=== PATIENT | female | born 1990 | race African-American/Black ===

== ENCOUNTER 2017-01-06 17:48 | Emergency (ER) | payer BC ==
--- NOTE | 2017-01-06 18:47 | ER Document Report ---
ED GI/ - General Chief Complaint: Nausea/Vomiting Stated Complaint: NAUSEA Time Seen by Provider: 01/06/17 18:20 Notes: 26 yo female c/o nausea, light headed x 1 week. ? . LMP 12/17. Denies abdominal pain, vaginal bleeding, dysuria, fever TRAVEL OUTSIDE OF THE [place] IN LAST 30 DAYS: No - HPI Onset: Last week Timing/Duration: Gradual, Persistent Quality of pain: No pain Vaginal bleeding (Compared to normal period): None Menstrual period history: Missed LMP: 12/17/16 : 2 Para: 1 - Related Data Allergies/Adverse Reactions: No Known Allergies Allergy (Unverified 05/26/13 14:52) Past Medical History - General Information source: Patient - Social History Smoking Status: Never Smoker Chew tobacco use (# tins/day): No Frequency of alcohol use: None Drug Abuse: None Lives with: Family Family History: None Patient has suicidal ideation: No Patient has homicidal ideation: No Renal/ Medical History: Denies: Hx Peritoneal Dialysis - Immunizations Hx Diphtheria, Pertussis, Tetanus Vaccination: Yes Hx Pneumococcal Vaccination: 08/30/00 Review of Systems - Review of Systems Constitutional: Malaise, Weakness EENT: No symptoms reported Cardiovascular: No symptoms reported Respiratory: No symptoms reported Gastrointestinal: See HPI, Nausea Genitourinary: No symptoms reported Female Genitourinary: No symptoms reported Musculoskeletal: No symptoms reported Skin: No symptoms reported Hematologic/Lymphatic: No symptoms reported Neurological/Psychological: No symptoms reported Physical Exam - Vital signs Vitals: Temp Pulse Resp BP Pulse Ox 98.8 F 87 14 112/71 100 01/06/17 18:05 01/06/17 18:05 01/06/17 18:05 01/06/17 18:05 01/06/17 18:05 Interpretation: Normal - General General appearance: Appears well, Alert - HEENT Head: Normocephalic, Atraumatic Eyes: Normal Pupils: PERRL - Respiratory Respiratory status: No respiratory distress Chest status: Nontender Breath sounds: Normal Chest palpation: Normal - Cardiovascular Rhythm: Regular Heart sounds: Normal auscultation Murmur: No - Abdominal Inspection: Normal Distension: No distension Bowel sounds: Normal Tenderness: Nontender Organomegaly: No organomegaly - Back Back: Normal, Nontender - Extremities General upper extremity: Normal inspection, Nontender, Normal color, Normal ROM , Normal temperature General lower extremity: Normal inspection, Nontender, Normal color, Normal ROM , Normal temperature, Normal weight bearing. No: Marcos's sign - Neurological Neuro grossly intact: Yes Cognition: Normal Orientation: AAOx4 Cecelia Coma Scale Eye Opening: Spontaneous [place] Coma Scale Verbal: Oriented Cecelia Coma Scale Motor: Obeys Commands Cecelia Coma Scale Total: 15 Speech: Normal Motor strength normal: LUE, RUE, LLE, RLE Sensory: Normal - Psychological Associated symptoms: Normal affect, Normal mood - Skin Skin Temperature: Warm Skin Moisture: Dry Skin Color: Normal Course - Vital Signs Vital signs: Temp Pulse Resp BP Pulse Ox 98.3 F 72 20 114/59 L 100 01/06/17 20:37 01/06/17 20:37 01/06/17 20:37 01/06/17 20:37 01/06/17 20:37 - Laboratory Laboratory results interpreted by me: 01/06/17 01/06/17 19:04 19:12 Serum HCG, Qual POSITIVE H Urine Protein 30 H Urine Ketones 80 H Urine Urobilinogen 2.0 H Ur Leukocyte Esterase LARGE H Urine Ascorbic Acid 40 H Discharge - Discharge Clinical Impression: Dehydration UTI (urinary tract infection) Qualifiers: Urinary tract infection type: acute cystitis Hematuria presence: without hematuria Qualified Code(s): N30.00 - Acute cystitis without hematuria Qualifiers: Weeks of gestation: 9 weeks Qualified Code(s): Z3A.09 - 9 weeks gestation of Condition: Stable Disposition: HOME, SELF-CARE Instructions: Antibiotic Therapy ([facility]), Antinausea Medication ([facility]), Urinary Tract Infection ([facility]), ([facility]) Additional Instructions: You were treated today for a urinary tract infection and mild dehydration Take antibiotic as prescribed A urine culture is pending. Based o thsoe results, If any further treatment is needed, we will call you. Your pregancy test was positive today Based on your last menstrual period, your estimated due date is Sep 23, 2017 Take phenergan as needed for nausea. Be aware, This medicine may make you drowsy You may also take Over the counter Vitamin B6, 25mg tablet every 8h as needed for nausea Please follow up with your senior mechanical development engineer for further treatment Prescriptions: Nitrofurantoin Macrocrystal [Macrodantin] 100 mg PO QID #28 capsule Promethazine HCl [Phenergan 25 mg Tablet] 25 mg PO Q6H PRN #20 tablet PRN Reason: Forms: Return to Work
[2017-01-06 19:19] LABS: APPEARANCE,URINE CLOUDY; BILIRUBIN,URINE NEGATIVE (NEGATIVE); GLUCOSE, URINE NEGATIVE (NEGATIVE); KETONES,URINE 80 mg/dL (NEGATIVE); LEUKOCYTE ESTERASE,URINE LARGE (NEGATIVE); NITRITE,URINE NEGATIVE (NEGATIVE); PROTEIN,URINE 30 mg/dL (NEGATIVE); URINE SPECIFIC GRAVITY 1.031
[2017-01-06] MEDS ORDERED: NORMAL SALINE 1000 ML 1,000 ML IV PRN (19:35)
[2017-01-06] MEDS ORDERED: PROMETHAZINE HCL 25 MG TABLET PO ONE (19:36)
[2017-01-06] MEDS ORDERED: NITROFURANTOIN MONOHYD/M-CRYST 100 MG CAPSULE PO ONE (20:01)
[2017-01-06 20:44] VITALS: BP 114/59
== END 2017-01-06 20:50 | disposition home or self-care (01) ==
LOC: ER 17:48
DX: O23.11 Infections of bladder in pregnancy, first trimester (principal); O99.281 Endocrine, nutritional and metabolic diseases complicating pregnancy, first trimester; E86.0 Dehydration; O26.891 Other specified pregnancy related conditions, first trimester; R11.0 Nausea; R42 Dizziness and giddiness; R53.1 Weakness; O26.811 Pregnancy related exhaustion and fatigue, first trimester; Z3A.09 9 weeks gestation of pregnancy
CPT/HCPCS: 99284; 96360; 36415; 87086; 84703; 81001; J7030; J8499

== ENCOUNTER 2017-08-27 12:32 | Inpatient (IN) | payer MEDICAID ==
[2017-08-27 13:16] LABS: APPEARANCE,URINE SLIGHTLY-CLOUDY; BILIRUBIN,URINE NEGATIVE (NEGATIVE); COLOR,URINE YELLOW; GLUCOSE, URINE NEGATIVE (NEGATIVE); KETONES,URINE NEGATIVE (NEGATIVE); LEUKOCYTE ESTERASE,URINE TRACE (NEGATIVE); NITRITE,URINE NEGATIVE (NEGATIVE); PROTEIN,URINE NEGATIVE (NEGATIVE); URINE SPECIFIC GRAVITY 1.017; UROBILINOGEN,URINE NEGATIVE mg/dL (<2.0)
[2017-08-27 13:43] LABS: URINE AMPHETAMINES SCREEN NEGATIVE; URINE BARBITURATES SCREEN NEGATIVE; URINE BENZODIAZEPINES SCREEN NEGATIVE; URINE COCAINE SCREEN NEGATIVE; URINE MARIJUANA (THC) SCREEN NEGATIVE; URINE METHADONE SCREEN NEGATIVE; URINE PHENCYCLIDINE SCREEN NEGATIVE
[2017-08-27] MEDS ORDERED: RINGERS SOLUTION,LACTATED 1,000 ML IV PRN (15:19)
[2017-08-27] MEDS ORDERED: PENICILLIN G POTASSIUM 5,000,000 UNIT in DEXTROSE 5%-WATER 100 ML IV ONE (15:19)
[2017-08-27] MEDS ORDERED: RINGERS SOLUTION,LACTATED 1,000 ML IV ONE (15:19)
[2017-08-27] MEDS ORDERED: PENICILLIN G-K 5 MILLION UNIT VIAL ONE ×2 (16:36→20:39)
[2017-08-27 16:55] LABS: ABSOLUTE EOSINOPHILS # (AUTO) 0.1 10^3/uL (0.0-0.6); ABSOLUTE LYMPHOCYTES (AUTO) 1.6 10^3/uL (0.5-4.7); ABSOLUTE MONOCYTES (AUTO) 0.7 10^3/uL (0.1-1.4); ABSOLUTE NEUT (AUTO) 6.3 10^3/uL (1.7-8.2); BASOPHILS % (AUTO) 0.3 % (0-2); EOSINOPHILS % (AUTO) 0.8 % (0-6); HEMATOCRIT 33.9 % (36.0-47.0); HEMOGLOBIN 11.5 g/dL (12.0-15.5); MEAN CORPUSCULAR HEMOGLOBIN 31.9 pg (27.0-33.4); MEAN CORPUSCULAR HGB CONC 34.1 g/dL (32.0-36.0); MEAN CORPUSCULAR VOLUME 94 fl (80-97); MONOCYTES % (AUTO) 8.5 % (3-13); PLATELET COUNT 221 10^3/uL (150-450); RED BLOOD COUNT 3.62 10^6/uL (3.72-5.28); RED CELL DISTRIBUTION WIDTH 13.7 % (11.5-14.0); SEGMENTED NEUTROPHILS % (AUTO) 72.4 % (42-78); TOTAL CELLS COUNTED % (AUTO) 100 %; WHITE BLOOD COUNT 8.7 10^3/uL (4.0-10.5)
[2017-08-27] MEDS ORDERED: OXYTOCIN/NORMAL SALINE 20 UNIT/1,000 ML RTUINJ IV PRN (18:18)
--- NOTE | 2017-08-27 19:00 | L&D Progress Notes ---
PROGRESS NOTES Datetime Report Generated by CPN: 08/27/2017 19:00 PROGRESS NOTE Impression: Reassuring Heart Rate Procedures: Sterile Vag Exam Plan: Continue Present Management; Augmentation Informed Consent Obtained: Vaginal Delivery Vital Signs : Reviewed; Within Normal Limits Comment: OOB walking and on ball, VE unchanged, uc's mild and irregular, discussed with pt augmentation of labor VAGINAL EXAM Dilatation: 4 Effacement: 50 Station: -2 Contractions: irregular MEMBRANES Membranes: Intact FETUS A Monitoring: External US Variability: Moderate 6-25bpm Accelerations: 15X15 Presentation: Vertex SIGNATURE SIGNATURE: [id number] Assignment: Aimee Howard MD Signature: with User ID: [email or web address] : with User ID: [email or web address]
--- NOTE | 2017-08-27 19:30 | Non Stress Test Report ---
Non Stress Test Datetime Report Generated by CPN: 08/27/2017 19:30 DEMOGRAPHIC EGA NST: 40.5 INDICATION Indication for Study: Ordered by Provider MONITORING Monitor Explained: Monitor Explained; Test Explained; Patient Verbalized Understanding Time on Monitor: 08/27/2017 12:50 Time off Monitor: 08/27/2017 13:28 NST Duration: 38 NST INTERVENTIONS NST Interventions: PO Hydration; Reposition Patient Physician Notified NST: Howard BABY A: [id number] BABY A Movement : Present Contraction Frequency : Irregular FHR Baseline : 120 Accelerations : 15X15 Decelerations : None Variability : Moderate 6-25bpm NST Review: Meets Criteria for Reactive NST NST Review and Verified By : RAUL Masterson Results: Reactive NST REPORT Report Trigger: Send Report
[2017-08-27] MEDS: PENICILLIN G POTASSIUM 2,500,000 UNIT in DEXTROSE 5%-WATER 50 ML IV SCH (20:48)
[2017-08-27] MEDS ORDERED: OXYTOCIN/NORMAL SALINE 0 UNIT/0 ML RTUINJ ONE (21:01)
[2017-08-27] MEDS ORDERED: LIDOCAINE 1% INJ-PF (10 MG/ML) 30 ML SDV ONE (22:08)
[2017-08-27] MEDS ORDERED: OXYTOCIN/NORMAL SALINE 20 UNIT/1,000 ML RTUINJ ONE (22:08)
[2017-08-27] MEDS ORDERED: MISOPROSTOL 0.2 MG TABLET ONE (22:08)
[2017-08-27] MEDS ORDERED: FENTANYL CITRATE INJ/PF 100 MCG/2 ML AMPUL ONE (22:43)
[2017-08-27] MEDS ORDERED: FENTANYL/BUPIVACAINE/NS/PF 200 MCG/100 ML RTUINJ EPI ONE (22:43)
[2017-08-27] MEDS ORDERED: EPHEDRINE SULFATE INJ 50 MG/1 ML AMPULE ONE (22:43)
[2017-08-27] MEDS ORDERED: BUPIVACAINE HCL 0.25 % INJ/PF (2.5 MG/1 ML) 30 ML VIAL ONE (22:43)
[2017-08-27] MEDS ORDERED: PHENYLEPHRINE HCL INJ/PF 10 MG/1 ML SDV ONE (22:43)
[2017-08-28] MEDS ORDERED: PENICILLIN G-K 5 MILLION UNIT VIAL ONE (00:21)
[2017-08-28] MEDS: PENICILLIN G POTASSIUM 2,500,000 UNIT in DEXTROSE 5%-WATER 50 ML IV SCH (00:32)
[2017-08-28] MEDS ORDERED: ACETAMINOPHEN 650 MG SUPP.RECT PR PRN (01:41)
[2017-08-28] MEDS ORDERED: ACETAMINOPHEN 325 MG TABLET PO PRN (01:41)
[2017-08-28] MEDS ORDERED: DIPH/PERTUSS(ACELL)/TETANUS VAC/PF 0.5 ML SYR (>=10YO) IM PRN (01:41)
[2017-08-28] MEDS ORDERED: MAGNESIUM HYDROXIDE SUSP 30 ML UDCUP PO PRN (01:41)
[2017-08-28] MEDS ORDERED: GLYCERIN/WITCH HAZEL LEAF 1 EACH MED..PAD TP PRN (01:41)
[2017-08-28] MEDS ORDERED: PSEUDOEPHEDRINE HCL 30 MG TABLET PO PRN (01:41)
[2017-08-28] MEDS ORDERED: ZOLPIDEM TARTRATE 5 MG TABLET PO PRN (01:41)
[2017-08-28] MEDS ORDERED: PROMETHAZINE HCL INJ 25 MG/1 ML VIAL IV PRN (01:41)
[2017-08-28] MEDS ORDERED: NA PHOS,M-B/NA PHOS,DI-BA (ADULT) 133 ML ENEMA PR PRN (01:41)
[2017-08-28] MEDS ORDERED: DIBUCAINE 1% OINTMENT 28 GM TP PRN (01:41)
[2017-08-28] MEDS ORDERED: DIPHENHYDRAMINE HCL 25 MG CAPSULE PO PRN (01:41)
[2017-08-28] MEDS ORDERED: PROMETHAZINE HCL 25 MG SUPP.RECT PR PRN (01:41)
[2017-08-28] MEDS ORDERED: MEASLES,MUMPS&RUBELLA VACC/PF 0.5 ML VIAL SUBCUT PRN (01:41)
[2017-08-28] MEDS ORDERED: ACETAMINOPHEN WITH CODEINE #3 TABLET PO PRN ×2 (01:41)
[2017-08-28] MEDS ORDERED: BENZOCAINE/MENTHOL AEROSOL SPRAY 56 ML TOP PRN (01:41)
[2017-08-28] MEDS ORDERED: OXYTOCIN/NORMAL SALINE 20 UNIT/1,000 ML RTUINJ IV PRN (01:41)
[2017-08-28] MEDS ORDERED: PROMETHAZINE HCL 25 MG TABLET PO PRN (01:41)
[2017-08-28] MEDS ORDERED: MISOPROSTOL 0.2 MG TABLET ONE (02:46)
--- NOTE | 2017-08-28 03:05 | Warning Signs in Babies ---
VOD Warning Signs Datetime Report Generated by [facility]: 08/28/2017 03:05 VOD#[id number] -Warning Signs in Babies: Needs to be viewed. (08/27/2017 12:53:Heavenly Chacon)
--- NOTE | 2017-08-28 04:28 | Admission Physical ---
Datetime Report Generated by CPN: 08/28/2017 04:28 CURRENT ADMISSION Hx Assessment: The History has been Reviewed and is Current Chief Complaint: Uterine Contractions; Vaginal Bleeding Indication for Induction: Not Applicable Indication for Induction: Term, Intrauterine ; Active Labor Admit Plan: Admit to Unit; Initiate Labor Protocol ALLERGIES Medication Allergies: No Medication Allergies: No Known Allergies (08/27/2017) Medication Allergies: No Known Allergies (05/26/2013) Latex: No Latex Allergies OBSTETRICAL HISTORY EDC: 08/22/2017 00:00 : 3 Para: 1 Term: 1 : 0 SAB: 0 IAB: 1 Ectopic: 0 Livin Cesareans: 0 VBACs: 0 Multiple Births: 0 Gestational Diabetes: No Rh Sensitization: No Incompetent Cervix: No MACHO: No Infertility: No ART Treatment: No Uterine Anomaly: No IUGR: No Hx Previous C/S: No Macrosomia: No Hx Loss/Stillborn: No PIH: No Hx : No Placenta Previa/Abruption: No Depression/PP Depression: No PTL/PROM: No Post Hemorrhage: No Obstetrical History Comments: G1:05/2010 39 weeks, 6#14 Male Epidural no complications G2: 2014 EAB G3: current SEE RECORDS Alcohol: No Marijuana : No Cocaine: No Other Illicit Drugs: No Cigarettes: Never Smoker. 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 Surgery: No Heart Disease: No Hosp/Surgery: Yes Autoimmune Disorder: No Anesthetic Complications: No Kidney Disease: No Abnormal Pap Smear: Yes Neuro/Epilepsy: No Psychiatric Disorders: No Other Medical Diseases: No Hepatitis/Liver Disease: No Significant Family History: No Varicosities/Phlebitis: No Trauma/Violence : No Thyroid Dysfunction: No Medical History Comments: ASCUS pap with neg HPV, late PNC INFECTIOUS HISTORY Gonorrhea: No Genital Herpes: No Chlamydia: No Tuberculosis: No Syphilis: No Hepatitis: No HIV/AIDS Exposure: No Rash or Viral Illness: No HPV: No PHYSICAL EXAM General: Normal HEENT: Deferred Neurologic: Normal Thyroid: Deferred Heart: Normal Lungs: Normal Breast: Normal Back: Normal Abdomen: Normal Genitourinary Exam: Normal Extremities: Normal DTRs: Normal Pelvic Type: Adequate Physical Exam Comments: pelvis proven to 6lbs 14oz Vital Signs: Reviewed; Within Normal Limits VAGINAL EXAM Dilatation: 8 Dilatation: 4 Effacement: 100 Effacement: 50 Station: 0 Station: -2 Contraction Comments: q 1-2 Contraction Comments: irregular MEMBRANES Membranes: Intact FETUS A EGA: 40.5 Monitoring: External US FHR- Baseline: 115 Variability: Moderate 6-25bpm Accelerations: 15X15 Decelerations: None FHR Category: Category I Presentation: Vertex Admit Comment: 27yo IUP @ 40w5d into L_D with irregular uterine contractions and vaginal bleeding. A positive, Rubella Immune, GBS positive. Pt. was evaluated by Dr. Howard and found to have cervical change of 2cm after 2hrs and the decision was made to admit her, will augment prn. Medical hx significant for ASCUS pap with neg HPV and needs colpo pp. Hx is also significant for anemia during this and late entry to care at 20w5d. Will start PCN at this time. PLANS FOR LABOR AND DELIVERY Labor and Delivery: None Pain Management: Epidural Feeding Preference: Breast Benefit of Breast Feed Discussed: Yes Circumcision: N/A INFORMED CONSENT Informed Consent Obtained: Vaginal Delivery; Risks, Benefits and Alternatives Discussed Informed Consent Obtained: Vaginal Delivery Assignment: Aimee Howard MD Signature: with User ID: [email or web address] : with User ID: [email or web address]
--- NOTE | 2017-08-28 04:34 | Delivery Summary ---
Del Sum A-C Datetime Report Generated by CPN: 08/28/2017 04:34 DELIVERY PERSONNEL DELIVERY PERSONNEL: [id number] Delivery Doctor:: Aimee Howard MD Labor and Delivery Nurse:: Heavenly Chacon RN Labor and Delivery Nurse:: Johanna Burgess RN Head Of Measurement & Insights:: Fide Chacon RN Director Of Orthopedics/GAS LINE REPAIRER: Deanmary Benjamin, GAS LINE REPAIRER MATERNAL INFORMATION Delivery Anesthesia: Epidural Medications After Delivery: Pitocin Drip 20 Units/1000ml NSS Estimated Blood Loss (ml): 250 Maternal Complications: None Provider Comments: VFI delivered in ABIMAEL presentation. No nuchal cord. SHoulders and body delivered without difficulty. Cord doubly clamped and cut and to maternal abdomen for NRP. Placenta delivered intact spontaneously. FF at U. Good hemostasis after repair. Mother and baby stable upon provider leaving the room. LABOR SUMMARY EDC: 08/22/2017 00:00 No. Babies in Womb: 1 Attempted: No Labor Anesthesia: Epidural LABOR INFORMATION Reason for Induction: Not Applicable Onset of Labor: 08/27/2017 15:30 Complete Dilatation: 08/28/2017 01:05 Oxytocin: Augmentation Group B Beta Strep: positive Antibiotics # of Doses: 3 Antibiotics Time of Last Dose: 0032 Name of Antibiotic Given: Penicillin Steroids Given: None Reason Steroids Not Administered: Not Applicable MEMBRANES Membranes Rupture Method: Artificial Rupture of Membranes: 08/28/2017 00:56 Length of Rupture (hr): 0.47 Amniotic Fluid Color: Clear Amniotic Fluid Amount: Small Amniotic Fluid Odor: Normal STAGES OF LABOR Stage 1 hr: 9 Stage 1 min: 35 Stage 2 hr: 0 Stage 2 min: 19 Stage 3 hr: 0 Stage 3 min: 3 Total Time in Labor hr: 9 Total Time in Labor min: 57 VAGINAL DELIVERY Episiotomy: None Laceration #1: Perineal Laceration Extension #1: N/A Other Laceration: clitoral Laceration Repair: Yes Laceration Repair Note: clitoral laceration repaired in usual fashion for hemostasis. Good hemostasis. Sponge Count Correct: Yes Sharps Count Correct: Yes CSECTION DELIVERY Primary Indication: N/A Secondary Indication: N/A CSection Incidence: N/A Labor: N/A Elective: N/A CSection Incision: N/A BABY A INFORMATION Delivery Date/Time: 08/28/2017 01:24 Method of Delivery: Vaginal Born in Route : No : N/A Forceps: N/A Vacuum Extraction: N/A Shoulder Dystocia : No PRESENTATION/POSITION BABY A Presentation: Cephalic Cephalic Presentation: Vertex Vertex Position: Right Occipital Anterior Breech Presentation: N/A PLACENTA INFORMATION BABY A Placenta Delivery Time : 08/28/2017 01:27 Placenta Method of Delivery: Spontaneous Placenta Status: Delivered SCORES BABY A Heart Rate 1 min: >100 bpm Resp Effort 1 min: Good Cry Reflex Irritability 1 min: Cough or Sneeze or Pulls Away Muscle Tone 1 min: Active Motion Color 1 min: Body [place], Extremities Blue Resuscitation Effort 1 min: Tactile Stimulation SCORE 1 MIN: 9 Heart Rate 5 min: >100 bpm Resp Effort 5 min: Good Cry Reflex Irritability 5 min: Cough or Sneeze or Pulls Away Muscle Tone 5 min: Active Motion Color 5 min: Body [place], Extremities Blue Resuscitation Effort 5 min: Tactile Stimulation SCORE 5 MIN: 9 INFANT INFORMATION BABY A Gestational Age at Delivery: 40.6 Gestational Status: Full Term- 39- 40.6 Weeks Outcome : Liveborn Infant Condition : Stable Sex: Female IDENTIFICATION BABY A Verification Date/Time: 08/28/2017 01:58 ID Band Number: [id number] Mother's Name Verified: Yes Infant RN Verifying : B Burgess, RN Additional Verifying Personnel: D Fabiana, US WEIGHT/LENGTH BABY A Infant Birthweight (gm): 3670 Weight (lb): 8 Weight (oz): 1 Length (in): 20.00 Length (cm): 50.80 CORD INFORMATION BABY A No. Cord Vessels: 3 Nuchal Cord : N/A Cord Blood Taken: Yes-For Storage (Mom's Blood type +) Infant Suction: Mouth; Nose ASSESSMENT BABY A Complications: None Physical Findings at Delivery: Within Normal Limits Infant Respirations: Appears Normal Skin to Skin: Yes Skin to Skin Time (min): 60 Paid Search Manager/ALS Called : No Care By: B. Burgess RN Transferred To: Remains with Mother BABY B INFORMATION : N/A SIGNATURES Signature: with User ID: [email or web address]
[2017-08-28] MEDS: IBUPROFEN 800 MG TABLET PO SCH ×3 (06:29→21:11)
[2017-08-28] MEDS: FERROUS SULFATE 325 MG TABLET PO SCH ×2 (09:33→17:05)
[2017-08-28] MEDS: PRENATAL VITAMIN W DHA CAPSULE PO SCH (09:33)
[2017-08-28] MEDS: FAMOTIDINE 20 MG TABLET PO SCH ×2 (09:33→21:10)
[2017-08-28] MEDS: SENNOSIDES/DOCUSATE 8.6-50 MG 1 EACH TABLET PO SCH (09:33)
[2017-08-28] MEDS: DOCUSATE SODIUM 100 MG CAPSULE PO SCH ×2 (09:34→17:05)
--- NOTE | 2017-08-28 10:18 | PDOC PROGRESS REPORT ---
Subjective-OB Subjective: Post Delivery Day: 27 year old. Denies any needs at this time Doing well, no c/o, voiding, scant bleeding, ambulating Physical Exam (OB) Vital Signs: Temp Pulse Resp BP Pulse Ox 98.5 F 70 20 106/65 100 08/28/17 08:18 08/28/17 08:18 08/28/17 08:18 08/28/17 08:18 08/28/17 08:18 Intake & Output 08/27/17 08/28/17 08/29/17 06:59 06:59 06:59 Weight 86.9 kg - Lochia Lochia Amount: Small 10-25 ml Lochia Color: Rubra/Red - Abdomen Description: Tender, Soft, Round Hernia Present: No Fundal Description: Firm, Midline Fundal Height: u/u - u/2 Objective-Diagnostic Laboratory: 08/27/17 15:56 08/27/17 08/27/17 08/27/17 12:40 15:56 15:56 WBC 8.7 RBC 3.62 L Hgb 11.5 L Hct 33.9 L MCV 94 MCH 31.9 MCHC 34.1 RDW 13.7 Plt Count 221 Seg Neutrophils % 72.4 Lymphocytes % 18.0 Monocytes % 8.5 Eosinophils % 0.8 Basophils % 0.3 Absolute Neutrophils 6.3 Absolute Lymphocytes 1.6 Absolute Monocytes 0.7 Absolute Eosinophils 0.1 Absolute Basophils 0.0 Urine Color YELLOW Urine Appearance SLIGHTLY-CLOUDY Urine pH 6.0 Ur Specific Sneads 1.017 Urine Protein NEGATIVE Urine Glucose (UA) NEGATIVE Urine Ketones NEGATIVE Urine Blood LARGE H Urine Nitrite NEGATIVE Ur Leukocyte Esterase TRACE H Urine WBC (Auto) 4 Urine RBC (Auto) 1 Blood Type A POSITIVE Antibody Screen NEGATIVE Assessment and Plan(PN) - Assessment and Plan (1) Late care complicating Qualifiers: Trimester: unspecified trimester Qualified Code(s): O09.30 - Supervision of with insufficient care, unspecified trimester Is this a current diagnosis for this admission?: Yes (2) Vaginal delivery Is this a current diagnosis for this admission?: Yes - Time Spent with Patient Time with patient: Less than 15 minutes Medications reviewed and adjusted accordingly: Yes - Disposition Anticipated Discharge: Home Within: within 48 hours
[2017-08-29] MEDS: IBUPROFEN 800 MG TABLET PO SCH ×3 (05:51→21:07)
[2017-08-29 07:51] LABS: HEMATOCRIT 33.2 % (36.0-47.0); HEMOGLOBIN 11.2 g/dL (12.0-15.5); MEAN CORPUSCULAR HEMOGLOBIN 31.7 pg (27.0-33.4); MEAN CORPUSCULAR HGB CONC 33.6 g/dL (32.0-36.0); MEAN CORPUSCULAR VOLUME 94 fl (80-97); PLATELET COUNT 181 10^3/uL (150-450); RED BLOOD COUNT 3.52 10^6/uL (3.72-5.28); RED CELL DISTRIBUTION WIDTH 14.1 % (11.5-14.0); WHITE BLOOD COUNT 11.8 10^3/uL (4.0-10.5)
[2017-08-29] MEDS: SENNOSIDES/DOCUSATE 8.6-50 MG 1 EACH TABLET PO SCH (09:30)
[2017-08-29] MEDS: PRENATAL VITAMIN W DHA CAPSULE PO SCH (09:30)
[2017-08-29] MEDS: DOCUSATE SODIUM 100 MG CAPSULE PO SCH ×2 (09:30→17:09)
[2017-08-29] MEDS: FERROUS SULFATE 325 MG TABLET PO SCH ×2 (09:31→17:09)
[2017-08-29] MEDS: FAMOTIDINE 20 MG TABLET PO SCH ×2 (09:31→21:07)
--- NOTE | 2017-08-29 10:56 | PDOC PROGRESS REPORT ---
Subjective-OB Subjective: Post Delivery Day: 27 year old. Denies any needs at this time Doing well, no c/o, feeling better today, breast feeding, voiding Physical Exam (OB) Vital Signs: Temp Pulse Resp BP Pulse Ox 98.0 F 78 16 104/58 L 100 08/29/17 07:48 08/29/17 07:48 08/29/17 07:48 08/29/17 07:48 08/29/17 07:48 Intake & Output 08/28/17 08/29/17 08/30/17 06:59 06:59 06:59 Intake Total 480 Balance 480 Weight 86.9 kg - Lochia Lochia Amount: Scant < 10 ml Lochia Color: Rubra/Red - Abdomen Description: Tender, Soft, Round Hernia Present: No Fundal Description: Firm, Midline Fundal Height: u/u - u/2 Objective-Diagnostic Laboratory: 08/29/17 07:33 08/29/17 07:33 WBC 11.8 H RBC 3.52 L Hgb 11.2 L Hct 33.2 L MCV 94 MCH 31.7 MCHC 33.6 RDW 14.1 H Plt Count 181 Assessment and Plan(PN) - Assessment and Plan (1) Late care complicating Qualifiers: Trimester: unspecified trimester Qualified Code(s): O09.30 - Supervision of with insufficient care, unspecified trimester Is this a current diagnosis for this admission?: Yes (2) Vaginal delivery Is this a current diagnosis for this admission?: Yes - Time Spent with Patient Time with patient: Less than 15 minutes Medications reviewed and adjusted accordingly: Yes - Disposition Anticipated Discharge: Home Within: within 48 hours
[2017-08-30] MEDS: IBUPROFEN 800 MG TABLET PO SCH ×2 (06:14→13:23)
[2017-08-30 08:53] VITALS: BP 114/61
[2017-08-30] MEDS: SENNOSIDES/DOCUSATE 8.6-50 MG 1 EACH TABLET PO SCH (09:28)
[2017-08-30] MEDS: DOCUSATE SODIUM 100 MG CAPSULE PO SCH (09:28)
[2017-08-30] MEDS: FAMOTIDINE 20 MG TABLET PO SCH (09:29)
[2017-08-30] MEDS: FERROUS SULFATE 325 MG TABLET PO SCH (09:30)
[2017-08-30] MEDS: PRENATAL VITAMIN W DHA CAPSULE PO SCH (09:30)
--- NOTE | 2017-08-30 09:47 | PDOC PROGRESS REPORT ---
Subjective-OB Subjective: Post Delivery Day: 27 year old. Denies any needs at this time Doing well, family at BS, ready to go home, , voiding, ambulating, scant bleeding Physical Exam (OB) Vital Signs: Temp Pulse Resp BP Pulse Ox 98.3 F 92 18 114/61 98 08/30/17 08:50 08/30/17 08:50 08/30/17 08:50 08/30/17 08:50 08/30/17 08:50 Intake & Output 08/29/17 08/30/17 08/31/17 06:59 06:59 06:59 Intake Total 480 Balance 480 - Lochia Lochia Amount: Scant < 10 ml Lochia Color: Rubra/Red - Abdomen Description: Soft, Round Hernia Present: No Fundal Description: Firm, Midline Fundal Height: u/u - u/2 Objective-Diagnostic Laboratory: 08/29/17 07:33 Assessment and Plan(PN) - Assessment and Plan (1) Late care complicating Qualifiers: Trimester: unspecified trimester Qualified Code(s): O09.30 - Supervision of with insufficient care, unspecified trimester Is this a current diagnosis for this admission?: Yes (2) Vaginal delivery Is this a current diagnosis for this admission?: Yes - Time Spent with Patient Time with patient: Less than 15 minutes Medications reviewed and adjusted accordingly: Yes - Disposition Anticipated Discharge: Home Within: Other - home today
--- NOTE | 2017-08-30 09:50 | PDOC DISCHARGE SUMMARY ---
Final Diagnosis Discharge Date: 08/30/17 - Final Diagnosis (1) Late care complicating Is this a current diagnosis for this admission?: Yes (2) Vaginal delivery Is this a current diagnosis for this admission?: Yes Discharge Data - Discharge Medication Home Medications: No122/Iron/Folic Acid [ Multi Tablet] 1 each PO DAILY 08/27/17 Gestational Age: 40.6 Reason(s) for Admission: Onset of Labor, Group B Strep Positive Procedures: NST, Ultrasound Intrapartum Procedure(s): Spontaneous Vaginal Delivery Complication(s): Laceration-Perineal, Laceration-Periurethral Laceration-Degree: 1st - Data Baby 1 Female at 1 minute: 9 at 5 minutes: 9 Weight: 3.657 kg Home with Mother: Yes Complications: No - Diagnosis Test Laboratory: Temp Pulse Resp BP Pulse Ox 98.3 F 92 18 114/61 98 08/30/17 08:50 08/30/17 08:50 08/30/17 08:50 08/30/17 08:50 08/30/17 08:50 08/27/17 08/27/17 08/29/17 12:40 15:56 07:33 RBC 3.62 L 3.52 L Hgb 11.5 L 11.2 L Hct 33.9 L 33.2 L Urine Opiates Screen NEGATIVE - Discharge information/Instructions Discharge Activity: Activity As Tolerated, Balance Activity w/Rest, No Lifting Over 10 Pounds, No Lifting/Push/Pulling, Pelvic Rest, Slowly Increase Activity, No tub bath Discharge Diet: As Tolerated, Regular Disposition: HOME, SELF-CARE Follow up with: [facility] in: 4, Weeks
== END 2017-08-30 16:29 | disposition home or self-care (01) | DRG 775 ==
LOC: LC 12:32 → LR 15:25 → 2S 08-28 03:45
PROVIDERS: ADMIT Student in an Organized Health Care Education/Training Program; ATTEND Student in an Organized Health Care Education/Training Program
PROC: 0UQJXZZ Repair Clitoris, External Approach (ICD-10-PCS; principal; 2017-08-27)
PROC: 10E0XZZ Delivery of Products of Conception, External Approach (ICD-10-PCS; 2017-08-27)
PROC: 0HQ9XZZ Repair Perineum Skin, External Approach (ICD-10-PCS; 2017-08-27)
PROC: 4A1HXCZ Monitoring of Products of Conception, Cardiac Rate, External Approach (ICD-10-PCS; 2017-08-27)
DX: O99.824 Streptococcus B carrier state complicating childbirth (principal); O71.82 Other specified trauma to perineum and vulva; O70.0 First degree perineal laceration during delivery; Z3A.40 40 weeks gestation of pregnancy; Z37.0 Single live birth
CPT/HCPCS: 36415; 59025; 80307; 81001; 85025; 85027; 86592; 86850; 86900; 86901; 94760; J2370; J2540; J2590; J3010; J3490